=== PATIENT | male | born 1935 | race Caucasian/White ===

== ENCOUNTER 2021-04-13 12:58 | Emergency (ER) | payer SELFPAY ==
[~2021-04-13] VITALS: Ht 175.3 cm; Wt 65.8 kg
--- NOTE | 2021-04-13 13:00 | NUR ---
Dr. Lechuga is evaluating patient at bedside
[2021-04-13 13:01] VITALS: BP 129/68
--- NOTE | 2021-04-13 13:05 | NUR ---
85 [place]/o [place] c/o mechanical slip and fall down 5 steps. EMS reports no LOC, blood thinners, head/neck/back pain. Presents with L shoulder sling and gauze wrap to L hand; no other interventions en route. Pt denies nausea, vomiting, dizziness, headache, blurry vision. EMS states pt refused pain medication and IV insertion. Bed locked in lowest position, side rails x 2. PMH: prostate issues, pre-HTN Meds: unobtainable NKDA
--- NOTE | 2021-04-13 13:11 | NUR ---
Pt transported to CT by [facility].
--- NOTE | 2021-04-13 13:12 | NUR ---
[facility] REPORTS PATIENT REFUSING CT HEAD; DR. NUGENT MADE AWARE.
--- NOTE | 2021-04-13 13:25 | NUR ---
Patient returned from [facility]. Bed locked in lowest position, side rails x 1.
--- NOTE | 2021-04-13 14:15 | NUR ---
4in orthoglass used for left arm colles splint, pmsc's assessed and wnl. Patient tolerated well.
[2021-04-13] MEDS ORDERED: NAPR-1704 PO ×2 (14:30→15:00)
[2021-04-13] MEDS ORDERED: ACETAMINOPHEN EXTRA STRENGTH 500 MG TAB PO ONE (14:30)
[2021-04-13] MEDS ORDERED: ACET-10509 PO (14:30)
[2021-04-13 14:50] VITALS: BP 126/72
[2021-04-13] MEDS ORDERED: ACET-8386 PO (15:00)
--- NOTE | 2021-04-13 15:02 | NUR ---
Patient discharged with v/s stable. Written and verbal after care instructions given and explained. Patient alert, oriented and verbalized understanding of instructions. Ambulatory with steady gait. All questions addressed prior to discharge. ID band removed. Patient advised to follow up with PMD. Rx of [place]-Tylenol, Naprosyn given. Patient educated on indication of medication including possible reaction and side effects. Opportunity to ask questions provided and answered.
== END 2021-04-13 15:02 | disposition home or self-care (01) ==
LOC: MED 12:58
DX: S42.292A Other displaced fracture of upper end of left humerus, initial encounter for closed fracture (principal); S52.592A Other fractures of lower end of left radius, initial encounter for closed fracture; W10.8XXA Fall (on) (from) other stairs and steps, initial encounter; Y93.89 Activity, other specified; Y92.89 Other specified places as the place of occurrence of the external cause; Y99.8 Other external cause status
CPT/HCPCS: 29125; 73030; 73070; 73110; 99284; Q0092